=== PATIENT | male | born 2000 | race Hispanic/Latino ===

== ENCOUNTER 2018-03-22 09:05 | Emergency (ER) | payer OTHER ==
[2018-03-22] MEDS ORDERED: Lidocaine 1% PF 5 ML VIAL ONE (09:36)
[2018-03-22] MEDS ORDERED: Bupivacaine 0.25% 10 ML VIAL ONE (09:36)
--- NOTE | 2018-03-22 09:59 | RAD ---
LEFT HAND THREE VIEWS: HISTORY: Crushing injury with bleeding. TECHNIQUE: AP, lateral, and oblique views of the left hand are obtained. FINDINGS: Four views of the left hand demonstrate no definite evidence of left hand fractures, subluxations, or bony lesions. No obvious evidence of osseous lesions noted. There does appear to be soft tissue in jury to the distal aspect of the fourth digit, left hand. POS: [facility]
[2018-03-22] MEDS ORDERED: Adacel (T-DAP) 0.5 ML VIAL ONE (10:21)
== END 2018-03-22 10:42 | disposition home or self-care (01) ==
LOC: ERS 09:05
DX: S61.315A Laceration without foreign body of left ring finger with damage to nail, initial encounter (principal); F17.210 Nicotine dependence, cigarettes, uncomplicated; W22.8XXA Striking against or struck by other objects, initial encounter
CPT/HCPCS: 11720; 90471; 90715; J2001; S0020

== ENCOUNTER 2018-09-04 18:58 | Emergency (ER) | payer OTHER | END 2018-09-04 20:03 | disposition home or self-care (01) | LOC: ERS 18:58 | DX: J11.1 Influenza due to unidentified influenza virus with other respiratory manifestations (principal); R59.1 Generalized enlarged lymph nodes; I10 Essential (primary) hypertension; E78.5 Hyperlipidemia, unspecified; F17.210 Nicotine dependence, cigarettes, uncomplicated | CPT/HCPCS: 87804; 99284 ==

== ENCOUNTER 2022-04-21 19:14 | Emergency (ER) | payer OTHER ==
[2022-04-21] MEDS ORDERED: Acetaminophen 500 MG TAB ONE (20:51)
== END 2022-04-21 22:11 | disposition home or self-care (01) ==
LOC: ERS 19:14
DX: J02.9 Acute pharyngitis, unspecified (principal); I10 Essential (primary) hypertension; E78.5 Hyperlipidemia, unspecified; F17.210 Nicotine dependence, cigarettes, uncomplicated
CPT/HCPCS: 87081; 87430; 99283

== ENCOUNTER 2022-10-28 10:12 | Emergency (ER) | payer BC, SELFPAY ==
[2022-10-28] MEDS ORDERED: Ketorolac Tromethamine 30 MG/ML VIAL ONE (11:19)
== END 2022-10-28 13:41 | disposition home or self-care (01) ==
LOC: ERS 10:12
DX: S06.9X9A Unspecified intracranial injury with loss of consciousness of unspecified duration, initial encounter (principal); S00.81XA Abrasion of other part of head, initial encounter; M94.0 Chondrocostal junction syndrome [Tietze]; V49.40XA Driver injured in collision with unspecified motor vehicles in traffic accident, initial encounter; Y92.410 Unspecified street and highway as the place of occurrence of the external cause
CPT/HCPCS: 70450; 71045; 72125; 93005; 96372; J1885